=== PATIENT | female | born 1955 | race Two or more races ===

== ENCOUNTER 2017-03-28 11:44 | Emergency (ER) | payer OTHER ==
[~2017-03-28] VITALS: Ht 160 cm; Wt 77.1 kg
--- NOTE | 2017-03-28 11:50 | NUR ---
BIBRA 89 C/O NAUSEA AND VOMITING. DENIES FEVER. DENIES BEING ABLE TO EAT THIS MORNING. SEEN BY MD FOR EVAL. SAFETY AND COMFORT MEASURES PROVIDED. WILL MONITOR.
[2017-03-28] MEDS ORDERED: ONDANSETRON HCL/PF 4 MG/2 ML VIAL ONE (11:59)
[2017-03-28] MEDS ORDERED: IV NS 0.9% 1,000 ML BAG IV ONE (12:00)
[2017-03-28] MEDS ORDERED: ONDANSETRON HCL/PF 4 MG/2 ML VIAL IVP ONE (12:00)
--- NOTE | 2017-03-28 12:00 | NUR ---
IV ACCESS STARTED. BLOOD DRAWN FOR LABS. MEDICATED ORDERED.
[2017-03-28 12:09] LABS: EOSINOPHILS % (AUTO) 0.8 % (0.0-6.0); HEMOGLOBIN 12.8 g/dL (11.5-14.8)
[2017-03-28 12:15] LABS: BASOPHILS # (AUTO) 0.1 /CMM (0.0-0.2); BASOPHILS % (AUTO) 0.8 % (0.0-2.0); EOSINOPHILS # (AUTO) 0.1 /CMM (0.0-0.7); HEMATOCRIT 38 % (33-45); LYMPHOCYTES # (AUTO) 1.8 /CMM (0.8-4.8); LYMPHOCYTES % (AUTO) 15.4 % (20.0-44.0); MEAN CORPUSCULAR HEMOGLOBIN 32 PG (26.0-33.0); MEAN CORPUSCULAR HGB CONC 34 g/dl (31.0-36.0); MEAN CORPUSCULAR VOLUME 95 fL (82-100); MONOCYTES # (AUTO) 0.6 /CMM (0.1-1.30); MONOCYTES % (AUTO) 5.5 % (2.0-12.0); NEUTROPHILS # (AUTO) 9.1 /CMM (1.8-8.9); NEUTROPHILS % (AUTO) 77.5 % (43.0-81.0); PLATELET COUNT (AUTO) 270 /CMM (150-450); RDW COEFFICIENT OF VARIATION 13.1 (11.5-15.0); RED BLOOD CELL COUNT(AUTO) 3.96 MIL/uL (4.0-5.2); WHITE BLOOD COUNT (AUTO) 11.7 K/uL (4.3-11.0)
[2017-03-28 12:20] LABS: CALCIUM, SERUM 8.8 mg/dL (8.5-10.1); CARBON DIOXIDE 29 mmol/L (21-32); CHLORIDE 102 mmol/L (98-107); CREATININE 0.8 mg/dL (0.6-1.3); GLUCOSE 129 mg/dL (74-106); POTASSIUM 3.4 mmol/L (3.5-5.1); SODIUM SERUM 137 mmol/L (136-145); UREA NITROGEN, BLOOD 17 mg/dL (7-18)
--- NOTE | 2017-03-28 12:23 | NUR ---
PT TAKEN TO CT.
[2017-03-28 12:25] LABS: ALANINE AMINOTRANSFERASE 24 U/L (12-78); ALBUMIN 3.6 g/dL (3.4-5.0); ALKALINE PHOSPHATASE 66 U/L (46-116); ASPARTATE AMINOTRANSFERASE 27 U/L (15-37); BILIRUBIN,DIRECT 0.2 mg/dL (0.0-0.2); BILIRUBIN,TOTAL 1.1 mg/dL (0.2-1.0); LIPASE 102 U/L (73-393); TOTAL PROTEIN, SERUM 7.5 g/dL (6.4-8.2)
[2017-03-28 12:27] LABS: TROPONIN I < 0.017 ng/mL (0.00-0.056)
--- NOTE | 2017-03-28 13:23 | NUR ---
Patient discharged to home in stable condition. Written and verbal after care instructions given. Patient verbalizes understanding of instruction.
--- NOTE | 2017-03-28 13:23 | NUR ---
IV removed. Catheter intact and site benign. Pressure and 4x4 applied to site. No bleeding noted.
[2017-03-28 13:25] VITALS: BP 132/71
== END 2017-03-28 13:26 | disposition home or self-care (01) ==
LOC: ER 11:47
DX: R11.2 Nausea with vomiting, unspecified (principal); R42 Dizziness and giddiness; T46.5X5A Adverse effect of other antihypertensive drugs, initial encounter; Y92.89 Other specified places as the place of occurrence of the external cause; I10 Essential (primary) hypertension; G20 Parkinson's disease
CPT/HCPCS: 36415; 80048; 80076; 83690; 84484; 85025; 93005; 96361; 96374; 99285; A4606; J2405; J7030; Z7610

== ENCOUNTER 2021-04-04 20:13 | Emergency (ER) | payer OTHER ==
[~2021-04-04] VITALS: Ht 157.5 cm; Wt 73.9 kg
[2021-04-04 20:20] VITALS: BP 156/99
[2021-04-04] MEDS ORDERED: CARB1TAB21 PO (20:49)
[2021-04-04] MEDS ORDERED: CARBIDOPA/LEVA CR 25/100MG 1 TAB.SA PO SCH (21:00)
[2021-04-04] MEDS ORDERED: CARBIDOPA/LEVODOPA 25/100 MG 1 UDTAB ONE (21:02)
--- NOTE | 2021-04-04 21:07 | NUR ---
MEDICATION TAKEN FROM LIN UNIT.
--- NOTE | 2021-04-04 21:10 | NUR ---
Patient discharged to home in stable condition. Written and verbal after care instructions given. Patient verbalizes understanding of instruction. Pt ambulatory with a steady gait
== END 2021-04-04 21:10 | disposition home or self-care (01) ==
LOC: ER 20:22
DX: Z76.0 Encounter for issue of repeat prescription (principal); I10 Essential (primary) hypertension; G20 Parkinson's disease

== ENCOUNTER 2023-11-23 05:55 | Emergency (ER) | payer OTHER, MEDICAID ==
[~2023-11-23] VITALS: Ht 167.6 cm; Wt 75.7 kg
[~2023-11-23 05:55] MED LIST: CARB1TAB21 PO
[2023-11-23] MEDS ORDERED: MORPHINE SULFATE INJ 4 MG/ML DISP.SYRIN ONE (06:10)
[2023-11-23] MEDS ORDERED: ONDANSETRON HCL/PF 4 MG/2 ML VIAL ONE (06:10)
[2023-11-23 06:24] LABS: BASOPHILS % (AUTO) 0.2 % (0.0-2.0); EOSINOPHILS # (AUTO) 0.1 K/uL (0.0-0.7); EOSINOPHILS % (AUTO) 0.7 % (0.0-6.0); HEMATOCRIT 38 % (33-45); HEMOGLOBIN 13.4 g/dL (11.5-14.8); LYMPHOCYTES % (AUTO) 10.8 % (20.0-44.0); MEAN CORPUSCULAR HEMOGLOBIN 33 PG (26.0-33.0); MEAN CORPUSCULAR HGB CONC 35 g/dl (31.0-36.0); MEAN CORPUSCULAR VOLUME 93 fL (82-100); MONOCYTES # (AUTO) 0.3 K/uL (0.1-1.30); MONOCYTES % (AUTO) 2.9 % (2.0-12.0); NEUTROPHILS % (AUTO) 85.4 % (43.0-81.0); PLATELET COUNT (AUTO) 232 K/uL (150-450); RED BLOOD CELL COUNT(AUTO) 4.08 MIL/uL (4.0-5.2); RED CELL DISTRIBUTION WIDTH 13.7 % (11.5-15.0); WHITE BLOOD COUNT (AUTO) 9.4 K/uL (4.3-11.0)
[2023-11-23] MEDS ORDERED: MAG HYDROX/AL HYDROX/SIMETH 30 ML UDC ONE (06:25)
[2023-11-23] MEDS ORDERED: FAMOTIDINE/PF INJ 20 MG/2 ML VIAL IV ONE (06:26)
[2023-11-23] MEDS: IV NS 0.9% 1,000 ML BAG IV ONE (06:34)
[2023-11-23 06:35] LABS: INR 0.97 (0.91-1.10); PARTIAL THROMBOPLASTIN TIME 34.2 SEC (24.3-34.3); PROTHROMBIN TIME 10.3 SECS (9.2-11.1)
[2023-11-23] MEDS: MAG HYDROX/AL HYDROX/SIMETH 30 ML UDC PO ONE (06:35)
[2023-11-23] MEDS: FAMOTIDINE/PF INJ 20 MG/2 ML VIAL IV ONE (06:35)
[2023-11-23] MEDS: ONDANSETRON HCL/PF 4 MG/2 ML VIAL IVP ONE (06:35)
[2023-11-23] MEDS: MORPHINE SULFATE INJ 2 MG/ML DISP.SYRIN IV ONE (06:35)
[2023-11-23 06:36] LABS: CALCIUM, SERUM 8.1 mg/dL (8.5-10.1); CARBON DIOXIDE 24 mmol/L (21-32); CHLORIDE 104 mmol/L (98-107); CREATININE 0.6 mg/dL (0.6-1.3); GLUCOSE 130 mg/dL (74-106); POTASSIUM 3.5 mmol/L (3.5-5.1); SODIUM SERUM 138 mmol/L (136-145); UREA NITROGEN, BLOOD 12 mg/dL (7-18)
[2023-11-23 06:49] LABS: ALANINE AMINOTRANSFERASE < 6 U/L (12-78); ALBUMIN 3.2 g/dL (3.4-5.0); ALKALINE PHOSPHATASE 98 U/L (46-116); ASPARTATE AMINOTRANSFERASE 19 U/L (15-37); BILIRUBIN,DIRECT 0.2 mg/dL (0.0-0.2); BILIRUBIN,TOTAL 0.9 mg/dL (0.2-1.0); NT-PRO BNP 42 pg/mL (0-125); TOTAL PROTEIN, SERUM 7.4 g/dL (6.4-8.2)
[2023-11-23] MEDS ORDERED: ACETAMINOPHEN 325 MG TABLET ONE (07:19)
[2023-11-23] MEDS: ACETAMINOPHEN 325 MG TABLET PO ONE (07:22)
[2023-11-23 08:19] LABS: APPEARANCE,URINE CLEAR (CLEAR); BILIRUBIN,URINE NEGATIVE (NEGATIVE); BLOOD, URINE NEGATIVE Ery/uL (NEGATIVE); COLOR,URINE YELLOW (YELLOW); KETONES,URINE NEGATIVE (NEGATIVE); LEUKOCYTE ESTERASE ,URINE NEGATIVE (NEGATIVE); NITRITE, URINE NEGATIVE (NEGATIVE); PROTEIN,URINE NEGATIVE (NEGATIVE); UGLUCOSE NEGATIVE (NEGATIVE); UROBILINOGEN,URINE 0.2 EU/dL (0.2)
[2023-11-23 09:46] VITALS: BP 141/69; TEMP 98.4; O2SAT 98
== END 2023-11-23 09:46 | disposition home or self-care (01) ==
LOC: ER 05:59
DX: R10.13 Epigastric pain (principal); R07.89 Other chest pain; I10 Essential (primary) hypertension; Z79.899 Other long term (current) drug therapy
CPT/HCPCS: 99285; 74176; 96374; 71045; 96361; 96375; 93005; 85025; 80048; 87086; 83690; 80076; 81003; 36415; 84484 ×2; 85730; 83880; J3490; J2405; J7030; J2270

== ENCOUNTER 2023-11-29 04:31 | Emergency (ER) | payer OTHER, MEDICAID ==
[~2023-11-29] VITALS: Ht 157.5 cm; Wt 74.4 kg
[2023-11-29] MEDS: ONDANSETRON HCL/PF 4 MG/2 ML VIAL IVP ONE (05:00)
[2023-11-29] MEDS ORDERED: MORPHINE SULFATE INJ 2 MG/ML DISP.SYRIN IV ONE (05:00)
[2023-11-29 05:15] LABS: BASOPHILS % (AUTO) 0.6 % (0.0-2.0); EOSINOPHILS # (AUTO) 0.1 K/uL (0.0-0.7); EOSINOPHILS % (AUTO) 2.3 % (0.0-6.0); HEMATOCRIT 40 % (33-45); LYMPHOCYTES # (AUTO) 1.7 K/uL (0.8-4.8); LYMPHOCYTES % (AUTO) 26.8 % (20.0-44.0); MEAN CORPUSCULAR HEMOGLOBIN 32 PG (26.0-33.0); MEAN CORPUSCULAR HGB CONC 35 g/dl (31.0-36.0); MEAN CORPUSCULAR VOLUME 93 fL (82-100); MONOCYTES # (AUTO) 0.4 K/uL (0.1-1.30); MONOCYTES % (AUTO) 5.9 % (2.0-12.0); NEUTROPHILS # (AUTO) 4.1 K/uL (1.8-8.9); NEUTROPHILS % (AUTO) 64.4 % (43.0-81.0); PLATELET COUNT (AUTO) 242 K/uL (150-450); RED BLOOD CELL COUNT(AUTO) 4.32 MIL/uL (4.0-5.2); RED CELL DISTRIBUTION WIDTH 13.8 % (11.5-15.0); WHITE BLOOD COUNT (AUTO) 6.4 K/uL (4.3-11.0)
[2023-11-29] MEDS: IV NS 0.9% 1,000 ML BAG IV ONE (05:18)
[2023-11-29 05:23] LABS: CALCIUM, SERUM 9.7 mg/dL (8.5-10.1); CARBON DIOXIDE 27 mmol/L (21-32); CHLORIDE 105 mmol/L (98-107); CREATININE 0.8 mg/dL (0.6-1.3); GLUCOSE 124 mg/dL (74-106); INR 0.96 (0.91-1.10); POTASSIUM 3.6 mmol/L (3.5-5.1); PROTHROMBIN TIME 10.2 SECS (9.2-11.1); SODIUM SERUM 140 mmol/L (136-145); UREA NITROGEN, BLOOD 15 mg/dL (7-18)
[2023-11-29] MEDS ORDERED: ONDANSETRON HCL/PF 4 MG/2 ML VIAL ONE (05:25)
[2023-11-29] MEDS ORDERED: LIDOCAINE VISCOUS 2% UD 15 ML UDC ONE (05:26)
[2023-11-29] MEDS ORDERED: MAG HYDROX/AL HYDROX/SIMETH 30 ML UDC ONE (05:26)
[2023-11-29 05:29] LABS: ALANINE AMINOTRANSFERASE 13 U/L (12-78); ALBUMIN 3.5 g/dL (3.4-5.0); ALKALINE PHOSPHATASE 91 U/L (46-116); ASPARTATE AMINOTRANSFERASE 23 U/L (15-37); BILIRUBIN,DIRECT 0.2 mg/dL (0.0-0.2); BILIRUBIN,TOTAL 1.1 mg/dL (0.2-1.0); LIPASE 43 U/L (16-77); TOTAL PROTEIN, SERUM 7.8 g/dL (6.4-8.2)
[2023-11-29 05:32] LABS: APPEARANCE,URINE CLEAR (CLEAR); BILIRUBIN,URINE NEGATIVE (NEGATIVE); BLOOD, URINE NEGATIVE Ery/uL (NEGATIVE); COLOR,URINE YELLOW (YELLOW); KETONES,URINE NEGATIVE (NEGATIVE); LEUKOCYTE ESTERASE ,URINE NEGATIVE (NEGATIVE); NITRITE, URINE NEGATIVE (NEGATIVE); PH,URINE 7.5 (5.0-8.0); PROTEIN,URINE NEGATIVE (NEGATIVE); UGLUCOSE NEGATIVE (NEGATIVE); UROBILINOGEN,URINE 0.2 EU/dL (0.2)
[2023-11-29] MEDS: LIDOCAINE VISCOUS 2% UD 15 ML UDC MM ONE (05:34)
[2023-11-29] MEDS: MAG HYDROX/AL HYDROX/SIMETH 30 ML UDC PO ONE (05:34)
[2023-11-29] MEDS ORDERED: ONDA4TAB5 PO (07:25)
[2023-11-29 07:48] VITALS: BP 171/91; TEMP 98.3; O2SAT 98
== END 2023-11-29 07:49 | disposition home or self-care (01) ==
LOC: ER 04:38
DX: R10.13 Epigastric pain (principal); R11.2 Nausea with vomiting, unspecified; I10 Essential (primary) hypertension; G20.A1 Parkinson's disease without dyskinesia, without mention of fluctuations
CPT/HCPCS: 99285; 96374; 71045; 96361; 93005; 85025; 80048; 83690; 80076; 81003; 36415; 84484; 85730; J2405; J7030

== ENCOUNTER 2024-02-01 12:21 | Emergency (ER) | payer MEDICARE, MEDICAID ==
[~2024-02-01] VITALS: Ht 157.5 cm; Wt 72.6 kg
[~2024-02-01 12:21] MED LIST changes: +ONDA4TAB5 PO
[2024-02-01 12:32] VITALS: TEMP 98.1
[2024-02-01] MEDS ORDERED: MAG HYDROX/AL HYDROX/SIMETH 30 ML UDC ONE (12:47)
[2024-02-01] MEDS ORDERED: LORAZEPAM 0.5 MG TABLET ONE (12:48)
[2024-02-01] MEDS ORDERED: FAMOTIDINE/PF INJ 20 MG/2 ML VIAL IV ONE (12:48)
[2024-02-01] MEDS: FAMOTIDINE/PF INJ 20 MG/2 ML VIAL IV ONE (12:52)
[2024-02-01] MEDS: LORAZEPAM 1 MG TABLET PO ONE (12:55)
[2024-02-01] MEDS: MAG HYDROX/AL HYDROX/SIMETH 30 ML UDC PO ONE (12:57)
[2024-02-01 13:01] LABS: BASOPHILS % (AUTO) 0.4 % (0.0-2.0); EOSINOPHILS # (AUTO) 0.1 K/uL (0.0-0.7); EOSINOPHILS % (AUTO) 0.8 % (0.0-6.0); HEMATOCRIT 40 % (33-45); HEMOGLOBIN 14.1 g/dL (11.5-14.8); LYMPHOCYTES # (AUTO) 1.1 K/uL (0.8-4.8); LYMPHOCYTES % (AUTO) 15.1 % (20.0-44.0); MEAN CORPUSCULAR HEMOGLOBIN 33 PG (26.0-33.0); MEAN CORPUSCULAR HGB CONC 35 g/dl (31.0-36.0); MEAN CORPUSCULAR VOLUME 94 fL (82-100); MONOCYTES # (AUTO) 0.4 K/uL (0.1-1.30); MONOCYTES % (AUTO) 5.8 % (2.0-12.0); NEUTROPHILS # (AUTO) 5.6 K/uL (1.8-8.9); NEUTROPHILS % (AUTO) 77.9 % (43.0-81.0); PLATELET COUNT (AUTO) 272 K/uL (150-450); RED BLOOD CELL COUNT(AUTO) 4.29 MIL/uL (4.0-5.2); RED CELL DISTRIBUTION WIDTH 13.8 % (11.5-15.0); WHITE BLOOD COUNT (AUTO) 7.2 K/uL (4.3-11.0)
[2024-02-01 13:20] LABS: CARBON DIOXIDE 26 mmol/L (21-32); CHLORIDE 106 mmol/L (98-107); CREATININE 0.6 mg/dL (0.6-1.3); GLUCOSE 123 mg/dL (74-106); POTASSIUM 3.5 mmol/L (3.5-5.1); SODIUM SERUM 140 mmol/L (136-145); UREA NITROGEN, BLOOD 10 mg/dL (7-18)
[2024-02-01 13:26] LABS: ALANINE AMINOTRANSFERASE 10 U/L (12-78); ALBUMIN 3.8 g/dL (3.4-5.0); ALKALINE PHOSPHATASE 87 U/L (46-116); ASPARTATE AMINOTRANSFERASE 18 U/L (15-37); BILIRUBIN,DIRECT 0.2 mg/dL (0.0-0.2); BILIRUBIN,TOTAL 0.9 mg/dL (0.2-1.0); LIPASE 38 U/L (16-77); TOTAL PROTEIN, SERUM 7.8 g/dL (6.4-8.2)
[2024-02-01] MEDS ORDERED: ONDA4TAB11 PO (15:17)
[2024-02-01] MEDS ORDERED: FAMO20TA80 PO (15:17)
[2024-02-01] MEDS ORDERED: ONDANSETRON HCL/PF 4 MG/2 ML VIAL ONE (15:34)
[2024-02-01] MEDS ORDERED: ACETAMINOPHEN ES 500 MG TABLET ONE ×2 (15:34→15:54)
[2024-02-01] MEDS: ACETAMINOPHEN ES 500 MG TABLET PO ONE (15:51)
[2024-02-01] MEDS: ONDANSETRON HCL/PF - ER 4 MG/2 ML VIAL IV ONE (15:51)
[2024-02-01 16:04] VITALS: BP 126/84; O2SAT 99
== END 2024-02-01 16:05 | disposition home or self-care (01) ==
LOC: ER 12:24
DX: G89.29 Other chronic pain (principal); R10.13 Epigastric pain; K59.00 Constipation, unspecified; F41.9 Anxiety disorder, unspecified; G20.A1 Parkinson's disease without dyskinesia, without mention of fluctuations; I10 Essential (primary) hypertension
CPT/HCPCS: 99285; 74176; 96374; 96375; 93005; 85025; 80048; 83690; 80076; 36415; 84484; J3490; J2405 ×2

== ENCOUNTER 2024-12-10 07:49 | Emergency (ER) | payer BC, MEDICAID ==
[~2024-12-10 07:49] MED LIST changes: +FAMO20TA80 PO; +ONDA4TAB11 PO
[2024-12-11] MEDS ORDERED: FAMO20TA80 PO (05:45)
[2024-12-11] MEDS ORDERED: ONDA4TAB11 PO (05:45)
== END 2024-12-10 08:31 | disposition left against medical advice (07) ==
LOC: ER 07:50
DX: R10.9 Unspecified abdominal pain (principal); Z53.21 Procedure and treatment not carried out due to patient leaving prior to being seen by health care provider

== ENCOUNTER 2024-12-11 02:37 | Emergency (ER) | payer BC, MEDICAID ==
[~2024-12-11] VITALS: Ht 160 cm; Wt 59.0 kg
[2024-12-11] MEDS ORDERED: ONDANSETRON HCL/PF 4 MG/2 ML VIAL ONE (03:08)
[2024-12-11] MEDS ORDERED: FAMOTIDINE/PF INJ 20 MG/2 ML VIAL IV ONE (03:09)
[2024-12-11] MEDS: ONDANSETRON HCL/PF 4 MG/2 ML VIAL IVP ONE (03:12)
[2024-12-11] MEDS: FAMOTIDINE/PF INJ 20 MG/2 ML VIAL IV ONE (03:12)
[2024-12-11] MEDS: IV NS 0.9% 1,000 ML BAG IV ONE (03:12)
[2024-12-11 03:14] LABS: PLATELET COUNT (AUTO) 278 K/uL (150-450); RED BLOOD CELL COUNT(AUTO) 4.30 MIL/uL (4.0-5.2); RED CELL DISTRIBUTION WIDTH 13.6 % (11.5-15.0); WHITE BLOOD COUNT (AUTO) 9.3 K/uL (4.3-11.0)
[2024-12-11 03:20] LABS: CALCIUM, SERUM 8.7 mg/dL (8.5-10.1); CREATININE 0.5 mg/dL (0.6-1.3); SODIUM SERUM 136 mmol/L (136-145); UREA NITROGEN, BLOOD 12 mg/dL (7-18)
[2024-12-11 03:27] LABS: ASPARTATE AMINOTRANSFERASE 35 U/L (15-37); TOTAL PROTEIN, SERUM 8.0 g/dL (6.4-8.2)
[2024-12-11 04:02] LABS: APPEARANCE,URINE CLEAR (CLEAR); BLOOD, URINE TRACE-INTA Ery/uL (NEGATIVE); LEUKOCYTE ESTERASE ,URINE TRACE (NEGATIVE); NITRITE, URINE NEGATIVE (NEGATIVE); UGLUCOSE NEGATIVE (NEGATIVE)
[2024-12-11 04:13] LABS: ADD URINE CULTURE NO; SQUAMOUS EPITHELIAL CELL,UR 0-2 /HPF (None Seen)
[2024-12-11] MEDS ORDERED: FAMO20TA80 PO (05:45)
[2024-12-11] MEDS ORDERED: ONDA4TAB11 PO (05:45)
[2024-12-11 06:29] VITALS: BP 183/91; TEMP 98.3; O2SAT 97
== END 2024-12-11 06:30 | disposition home or self-care (01) ==
LOC: ER 02:42
DX: R10.13 Epigastric pain (principal); I11.9 Hypertensive heart disease without heart failure; G20.A1 Parkinson's disease without dyskinesia, without mention of fluctuations; R11.0 Nausea; Z79.899 Other long term (current) drug therapy
CPT/HCPCS: 99285; 74176; 96374; 71045; 96361; 96375; 93005; 85025; 80048; 87086; 83690; 80076; 81001; 36415; 84484; J1308; J2405